=== PATIENT | male | born 1965 | race American Indian/Alaskan Native ===

== ENCOUNTER 2017-10-20 06:11 | Inpatient (IN) | payer MEDICARE, MEDICAID ==
[~2017-10-20] VITALS: Ht 170.2 cm; Wt 103.1 kg
[2017-10-20] VITALS (24 sets, daily range): BP systolic 127–171; BP diastolic 86–120
[~2017-10-20 06:11] MED LIST: GLIP5TAB13 PO; LISI1TAB13 PO; METF10002 PO; PANT20TA3 PO; cefazolin/dext.iso 2gm/50ml 50 ML IV ONE; famotidine 20mg tablet PO ONE
[2017-10-20] MEDS: ringers solution, lacted 1,000 ML IV SCH ×2 (07:37→15:47)
[2017-10-20 07:48] LABS: BASOPHILS % (AUTO) 0.5 % (0-1); EOSINOPHILS # (AUTO) 0.3 X10'3 (0-0.9); EOSINOPHILS % (AUTO) 3.7 % (0-6); LYMPHOCYTES % (AUTO) 38.3 % (21-51); MEAN CORPUSCULAR HEMOGLOBIN 30.9 PG (27.0-31.0); MEAN CORPUSCULAR HGB CONC 33.3 % (33.0-36.5); MEAN CORPUSCULAR VOLUME 92.8 FL (78-98); MEAN PLATELET VOLUME 8.8 FL (7.4-10.4); MONOCYTES # (AUTO) 0.5 X10'3 (0-0.9); MONOCYTES % (AUTO) 6.9 % (2-12); NEUTROPHILS # (AUTO) 3.9 X10'3 (1.8-7.7); NEUTROPHILS % (AUTO) 50.6 % (42-75); PRE OP HEMATOCRIT 46.3 % (42.0-52.0); PRE OP HEMOGLOBIN 15.4 g/dL (14.0-17.9); PRE OP PLATELET COUNT 241 X10'3 (140-440); RED BLOOD COUNT 4.99 X10'6 (4.70-6.10); RED CELL DISTRIBUTION WIDTH 13.9 % (11.5-14.5)
[2017-10-20 08:03] LABS: ALBUMIN 3.3 G/DL (3.4-5.0); ALBUMIN/GLOBULIN RATIO 0.9 (1.1-1.5); ALKALINE PHOSPHATASE 103 IU/L (46-116); BLOOD UREA NITROGEN 12 MG/DL (7-18); BUN/CREATININE RATIO 13.3 (5.4-32.0); CHLORIDE 110 MMOL/L (99-107); PRE OP ALT 39 U/L (30-65); PRE OP ANION GAP 9 (8-16); PRE OP AST 16 U/L (10-37); PRE OP BILIRUB, TOTAL 0.4 MG/DL (0.0-1.0); PRE OP GLUCOSE 148 MG/DL (70-104); PRE OP SODIUM 144 MMOL/L (135-145); TOTAL CARBON DIOXIDE 24.6 MMOL/L (24-32); TOTAL PROTEIN 7.1 G/DL (6.4-8.2); eGFR 89 ML/MIN
[2017-10-20] MEDS ORDERED: BUPIVAcaine/PF 2.5 mg/ml (0.25%) 30ml vial ONE ×2 (08:24→09:45)
[2017-10-20] MEDS ORDERED: ceFAZolin 1000mg inj ONE ×2 (08:24→09:45)
[2017-10-20] MEDS ORDERED: ondansetron/PF 4mg/2ml inj ONE (10:04)
[2017-10-20] MEDS ORDERED: sevoflurane 250ml liquid IH ONE (10:04)
[2017-10-20] MEDS ORDERED: dexamethasone sod phosphate 4mg/ml inj. ONE (10:04)
[2017-10-20] MEDS ORDERED: neostigmine methylsulfate 1 MG/ML 10ml vial ONE (10:04)
[2017-10-20] MEDS ORDERED: glycopyrrolate 0.2mg/ml inj ONE (10:04)
[2017-10-20] MEDS ORDERED: labetalol 5mg/ml 20ml inj. IV ONE (10:04)
[2017-10-20] MEDS ORDERED: fentaNYL/PF 50MCG/1 ML 2ML syringe ONE ×3 (10:20→11:39)
[2017-10-20] MEDS ORDERED: MIDAZolam 5mg/5ml vial ONE (10:22)
[2017-10-20] MEDS ORDERED: rocuronium 10mg/ml inj IV ONE (10:30)
[2017-10-20] MEDS ORDERED: propofol inj 20 ML IV ONE (10:30)
[2017-10-20] MEDS ORDERED: LIDOcaine 2% (20mg/ml) 5ml vial ONE (10:31)
[2017-10-20 10:37] LABS: CLARITY,URINE Clear (Clear); COLOR,URINE Yellow (Yellow); GLUCOSE, URINE Negative (Neg); KETONES,URINE Negative (Neg); LEUKOCYTE ESTERASE ,URINE Small (Neg); NITRITES, URINE Negative (Neg); OCCULT BLOOD,URINE Negative (Neg); PROTEIN,URINE Negative (Neg); UROBILINOGEN,URINE 0.2 E.U/dL (0.2-1.0)
[2017-10-20 10:38] LABS: UA COLLECTION TYPE VOIDED
[2017-10-20] MEDS ORDERED: ringers solution, lacted 1,000 ML IV SCH (10:48)
[2017-10-20] MEDS ORDERED: labetalol 20mg/4ml (5mg/ml) syringe IV PRN (10:50)
[2017-10-20] MEDS ORDERED: ondansetron/PF 4mg/2ml inj IV PRN ×2 (10:50→13:35)
[2017-10-20] MEDS ORDERED: fentaNYL/PF 50MCG/1 ML 2ML syringe IV PRN ×2 (10:50)
[2017-10-20] MEDS ORDERED: meperidine/PF 25mg/ml syringe IV PRN (10:50)
[2017-10-20] MEDS ORDERED: hydrALAZINE 20mg/ml inj. IV PRN (10:50)
[2017-10-20 10:51] LABS: MUCUS STRANDS MANY /LPF (Neg); SQUAMOUS EPITHELIAL CELL,UR MANY /LPF (FEW)
[2017-10-20 10:54] LABS: BACTERIA,URINE NONE SEEN /HPF (Neg); RBC,URINE 0-2 /HPF (0-2)
[2017-10-20] MEDS: meperidine/PF 25mg/ml syringe IV PRN ×4 (12:19→15:48)
[2017-10-20] MEDS ORDERED: dextrose ORAL solution 15 GM/59 ML bottle PO PRN ×2 (13:35)
[2017-10-20] MEDS ORDERED: acetaminophen 325mg tablet PO PRN ×2 (13:35)
[2017-10-20] MEDS ORDERED: magnesium Cl slow-release 64mg tablet PO PRN (13:35)
[2017-10-20] MEDS ORDERED: metoclopramide 5 mg/ml inj IV PRN (13:35)
[2017-10-20] MEDS ORDERED: magnesium 2GM in 50ml NS 50 ML IV PRN (13:35)
[2017-10-20] MEDS ORDERED: glucagon, human recombinant 1mg kit SUBCUT PRN (13:35)
[2017-10-20] MEDS ORDERED: morphine sulfate 8 MG/ML SYRINGE IV PRN ×2 (13:35)
[2017-10-20] MEDS ORDERED: magnesium 4gm in 100ml NS 100 ML IV PRN (13:35)
[2017-10-20] MEDS ORDERED: potassium Cl 40MEQ/NS 500ml 500 ML IV PRN ×2 (13:35)
[2017-10-20] MEDS ORDERED: mag hydrox/Alum hydrox/simeth 30ml oral suspension PO PRN (13:35)
[2017-10-20] MEDS ORDERED: haloperidol lactate 5mg/ml inj IM PRN (13:35)
[2017-10-20] MEDS: K and/or MAG REPLACEMENT MC SCH (13:35)
[2017-10-20] MEDS ORDERED: dextrose 50%-water 50ml dispensing syringe IV PRN ×3 (13:35)
[2017-10-20] MEDS ORDERED: potassium Cl 20 mEq SR tablet PO PRN ×2 (13:35)
[2017-10-20] MEDS ORDERED: HYDROcodone/acetaminophen 5mg/325mg tablet PO PRN (13:35)
[2017-10-20] MEDS ORDERED: haloperidol 5mg tablet PO PRN (13:35)
[2017-10-20] MEDS ORDERED: magnesium hydroxide 30ml (MOM) UD suspension PO PRN (13:35)
[2017-10-20] MEDS ORDERED: thiamine 100mg/ml 2ml inj. IV ONE (13:35)
[2017-10-20] MEDS ORDERED: MESSAGE TO PHARMACY PO ONE (13:35)
[2017-10-20] MEDS: normal saline 1000ml 1,000 ML IV SCH ×2 (13:35→20:23)
[2017-10-20] MEDS ORDERED: HYDROcodone/acetaminophen 10/325mg tab PO PRN (13:35)
[2017-10-20] MEDS: HYDROmorphone 2mg tablet PO PRN ×2 (15:46→20:23)
[2017-10-20 15:47] LABS: HEMOGLOBIN A1C 7.3 % (4.5-6.2)
[2017-10-20] MEDS: LORazepam 2 mg/ml vial IV PRN ×2 (16:14→20:23)
[2017-10-20] MEDS: enoxaparin 40mg/0.4ml syringe SUBCUT SCH (18:08)
[2017-10-20] MEDS: Insulin Detemir pen SQ SCH (21:00)
[2017-10-20] MEDS ORDERED: temazepam 15mg capsule PO PRN (21:00)
[2017-10-21] VITALS: BP 125/72
[2017-10-21] MEDS: LORazepam 2 mg/ml vial IV PRN ×6 (01:51→21:55)
[2017-10-21] MEDS: HYDROmorphone 2mg tablet PO PRN ×5 (01:51→19:21)
[2017-10-21 04:00] VITALS: BP 125/84
[2017-10-21 06:23] LABS: BASOPHILS % (AUTO) 0.1 % (0-1); EOSINOPHILS # (AUTO) 0.1 X10'3 (0-0.9); EOSINOPHILS % (AUTO) 0.8 % (0-6); HEMATOCRIT 43.3 % (42.0-52.0); HEMOGLOBIN 14.5 g/dl (14.0-17.9); LYMPHOCYTES # (AUTO) 2.3 X10'3 (1.1-4.8); LYMPHOCYTES % (AUTO) 17.4 % (21-51); MEAN CORPUSCULAR HEMOGLOBIN 31.4 PG (27.0-31.0); MEAN CORPUSCULAR HGB CONC 33.4 % (33.0-36.5); MEAN CORPUSCULAR VOLUME 93.8 FL (78-98); MEAN PLATELET VOLUME 9.1 FL (7.4-10.4); MONOCYTES # (AUTO) 0.8 X10'3 (0-0.9); MONOCYTES % (AUTO) 5.9 % (2-12); NEUTROPHILS % (AUTO) 75.8 % (42-75); PLATELET COUNT 231 X10'3 (140-440); RED BLOOD COUNT 4.61 X10'6 (4.70-6.10); RED CELL DISTRIBUTION WIDTH 14.2 % (11.5-14.5); WHITE BLOOD COUNT 13.2 X10'3 (4.5-11.0)
[2017-10-21 06:43] LABS: ALBUMIN 3.1 G/DL (3.4-5.0); ANION GAP 9 (8-16); BLOOD UREA NITROGEN 10 MG/DL (7-18); BUN/CREATININE RATIO 9.3 (5.4-32.0); CALCIUM 8.7 MG/DL (8.5-10.1); CHLORIDE 104 MMOL/L (99-107); CREATININE 1.07 MG/DL (0.60-1.10); GLUCOSE 170 MG/DL (70-104); MAGNESIUM 1.6 MG/DL (1.5-2.4); POTASSIUM 4.3 MMOL/L (3.5-5.1); SODIUM 140 MMOL/L (135-145); TOTAL CARBON DIOXIDE 26.7 MMOL/L (24-32); eGFR 73 ML/MIN
[2017-10-21 07:40] VITALS: BP 140/90
[2017-10-21] MEDS: K and/or MAG REPLACEMENT MC SCH (07:59)
[2017-10-21] MEDS ORDERED: non-formulary drug (Lisinopril/Hydrochlorothiazide (Lisinopril-Hctz 20-25 mg Tab) 1 TAB) PO SCH (08:00)
[2017-10-21] MEDS: lisinopril 20mg tablet PO SCH (08:04)
[2017-10-21] MEDS: HYDROchlorothiazide 25mg tablet PO SCH (08:04)
[2017-10-21] MEDS: pantoprazole 40mg Tablet.DR PO SCH (08:05)
[2017-10-21] MEDS: enoxaparin 40mg/0.4ml syringe SUBCUT SCH (08:06)
[2017-10-21] MEDS: normal saline 1000ml 1,000 ML IV SCH ×2 (09:35→16:41)
[2017-10-21 11:34] VITALS: BP 131/94
[2017-10-21] MEDS ORDERED: morphine sulfate 8 MG/ML SYRINGE IV PRN (13:35)
[2017-10-21] MEDS: insulin Lispro (HumaLOG) vial - multi-dose SQ SCH (18:59)
[2017-10-21 19:25] VITALS: BP 132/87
[2017-10-21] MEDS: docusate sod 250mg capsule PO SCH (21:39)
[2017-10-21] MEDS: Insulin Detemir pen SQ SCH (21:42)
[2017-10-22] VITALS: BP 116/67
[2017-10-22] MEDS: normal saline 1000ml 1,000 ML IV SCH ×2 (02:20→15:40)
[2017-10-22] MEDS: HYDROmorphone 2mg tablet PO PRN ×4 (03:40→23:35)
[2017-10-22 05:22] LABS: BASOPHILS # (AUTO) 0.1 X10'3 (0-0.2); BASOPHILS % (AUTO) 0.6 % (0-1); EOSINOPHILS # (AUTO) 0.2 X10'3 (0-0.9); EOSINOPHILS % (AUTO) 2.3 % (0-6); HEMATOCRIT 40.4 % (42.0-52.0); HEMOGLOBIN 13.6 g/dl (14.0-17.9); LYMPHOCYTES % (AUTO) 29.3 % (21-51); MEAN CORPUSCULAR HGB CONC 33.7 % (33.0-36.5); MEAN CORPUSCULAR VOLUME 91.7 FL (78-98); MONOCYTES # (AUTO) 0.8 X10'3 (0-0.9); MONOCYTES % (AUTO) 7.9 % (2-12); NEUTROPHILS % (AUTO) 59.9 % (42-75); PLATELET COUNT 207 X10'3 (140-440); RED CELL DISTRIBUTION WIDTH 13.9 % (11.5-14.5); WHITE BLOOD COUNT 10.1 X10'3 (4.5-11.0)
[2017-10-22 06:13] LABS: ALBUMIN 2.8 G/DL (3.4-5.0); ANION GAP 5 (8-16); BLOOD UREA NITROGEN 10 MG/DL (7-18); BUN/CREATININE RATIO 11.2 (5.4-32.0); CALCIUM 8.2 MG/DL (8.5-10.1); CHLORIDE 107 MMOL/L (99-107); CREATININE 0.89 MG/DL (0.60-1.10); GLUCOSE 121 MG/DL (70-104); MAGNESIUM 1.6 MG/DL (1.5-2.4); POTASSIUM 3.8 MMOL/L (3.5-5.1); SODIUM 142 MMOL/L (135-145); TOTAL CARBON DIOXIDE 30.1 MMOL/L (24-32); eGFR 90 ML/MIN
[2017-10-22] MEDS: pantoprazole 40mg Tablet.DR PO SCH (07:19)
[2017-10-22] MEDS: lisinopril 20mg tablet PO SCH (07:19)
[2017-10-22] MEDS: HYDROchlorothiazide 25mg tablet PO SCH (07:20)
[2017-10-22] MEDS: enoxaparin 40mg/0.4ml syringe SUBCUT SCH (07:20)
[2017-10-22 07:30] VITALS: BP 137/87
[2017-10-22] MEDS: K and/or MAG REPLACEMENT MC SCH (08:00)
[2017-10-22] MEDS ORDERED: LORazepam 2 mg/ml vial IV PRN (13:35)
[2017-10-22] MEDS: LORazepam 1 MG tablet PO PRN ×2 (15:19→21:56)
[2017-10-22] MEDS ORDERED: HYDROmorphone 2mg tablet PO PRN (16:40)
[2017-10-22] MEDS ORDERED: morphine sulfate 8 MG/ML SYRINGE IV PRN (16:40)
[2017-10-22] MEDS: nicotine 21mg patch - 24 hr TD SCH (19:16)
[2017-10-22 20:00] VITALS: BP 139/108
[2017-10-22 21:00] VITALS: BP 140/110
[2017-10-22 21:20] VITALS: BP_SYST 133; BP_SYST 137; BP_DIAS 85; BP_DIAS 87
[2017-10-22] MEDS: docusate sod 250mg capsule PO SCH (21:56)
[2017-10-22] MEDS: Insulin Detemir pen SQ SCH (22:01)
[2017-10-23] VITALS: BP 141/87
[2017-10-23] MEDS ORDERED: normal saline 1000ml 1,000 ML IV SCH (02:38)
[2017-10-23] MEDS: LORazepam 1 MG tablet PO PRN ×4 (02:40→17:11)
[2017-10-23] MEDS: HYDROmorphone 2mg tablet PO PRN ×4 (05:23→22:53)
[2017-10-23 06:07] LABS: ANION GAP 7 (8-16); BLOOD UREA NITROGEN 8 MG/DL (7-18); BUN/CREATININE RATIO 8.6 (5.4-32.0); CALCIUM 8.7 MG/DL (8.5-10.1); CHLORIDE 102 MMOL/L (99-107); CREATININE 0.93 MG/DL (0.60-1.10); GLUCOSE 144 MG/DL (70-104); MAGNESIUM 1.7 MG/DL (1.5-2.4); POTASSIUM 3.8 MMOL/L (3.5-5.1); SODIUM 141 MMOL/L (135-145); TOTAL CARBON DIOXIDE 32.1 MMOL/L (24-32); eGFR 86 ML/MIN
[2017-10-23 07:28] VITALS: BP 128/80
[2017-10-23] MEDS: K and/or MAG REPLACEMENT MC SCH (08:00)
[2017-10-23] MEDS: HYDROchlorothiazide 25mg tablet PO SCH (08:09)
[2017-10-23] MEDS: lisinopril 20mg tablet PO SCH (08:09)
[2017-10-23] MEDS: pantoprazole 40mg Tablet.DR PO SCH (08:09)
[2017-10-23] MEDS: enoxaparin 40mg/0.4ml syringe SUBCUT SCH (08:11)
[2017-10-23] MEDS: nicotine 21mg patch - 24 hr TD SCH (08:13)
[2017-10-23] MEDS: insulin Lispro (HumaLOG) vial - multi-dose SQ SCH ×2 (09:36→14:48)
[2017-10-23 11:30] VITALS: BP 140/97
[2017-10-23] MEDS ORDERED: methylnaltrexone br 12mg/0.6ml inj***SubQ only SQ ONE (12:15)
[2017-10-23] MEDS ORDERED: magnesium hydroxide 30ml (MOM) UD suspension PO ONE (12:15)
[2017-10-23] MEDS ORDERED: Potassium Cl inj 10 MEQ in normal saline 1000ml 1,000 ML IV SCH (13:35)
[2017-10-23] MEDS: folic acid 1mg tablet PO SCH (15:16)
[2017-10-23 20:00] VITALS: BP 148/93
[2017-10-23] MEDS: magnesium hydroxide 30ml (MOM) UD suspension PO SCH (20:00)
[2017-10-23] MEDS: thiamine 100mg tablet PO SCH (20:16)
[2017-10-23] MEDS: docusate sod 250mg capsule PO SCH (21:00)
[2017-10-23] MEDS: Insulin Detemir pen SQ SCH (22:45)
[2017-10-24] VITALS: BP 140/93
[2017-10-24 06:07] LABS: ALBUMIN 3.3 G/DL (3.4-5.0); ANION GAP 6 (8-16); BLOOD UREA NITROGEN 14 MG/DL (7-18); BUN/CREATININE RATIO 13.3 (5.4-32.0); CALCIUM 9.4 MG/DL (8.5-10.1); CHLORIDE 100 MMOL/L (99-107); CREATININE 1.05 MG/DL (0.60-1.10); GLUCOSE 132 MG/DL (70-104); POTASSIUM 4.1 MMOL/L (3.5-5.1); SODIUM 139 MMOL/L (135-145); TOTAL CARBON DIOXIDE 33.2 MMOL/L (24-32); eGFR 75 ML/MIN
[2017-10-24 07:20] VITALS: BP 116/70
[2017-10-24] MEDS: K and/or MAG REPLACEMENT MC SCH (08:00)
[2017-10-24] MEDS: pantoprazole 40mg Tablet.DR PO SCH (08:37)
[2017-10-24] MEDS: folic acid 1mg tablet PO SCH (08:37)
[2017-10-24] MEDS: thiamine 100mg tablet PO SCH (08:38)
[2017-10-24] MEDS: lisinopril 20mg tablet PO SCH (08:38)
[2017-10-24] MEDS: HYDROchlorothiazide 25mg tablet PO SCH (08:38)
[2017-10-24] MEDS: magnesium hydroxide 30ml (MOM) UD suspension PO SCH (08:38)
[2017-10-24] MEDS: enoxaparin 40mg/0.4ml syringe SUBCUT SCH (08:39)
[2017-10-24] MEDS: nicotine 21mg patch - 24 hr TD SCH (08:40)
[2017-10-24 10:53] VITALS: BP 101/59
[2017-10-24] MEDS ORDERED: PER10325T PO (11:13)
[2017-10-24] MEDS ORDERED: THI100T PO (11:13)
[2017-10-24] MEDS ORDERED: FOLI1TAB16 PO (11:13)
[2017-10-24] MEDS ORDERED: LORazepam 2 mg/ml vial IV PRN (13:35)
[2017-10-24] MEDS ORDERED: LORazepam 1 MG tablet PO PRN (13:35)
== END 2017-10-24 12:04 | disposition home or self-care (01) | DRG 354 ==
LOC: PAS 06:11 → SUR 3N 13:35
PROVIDERS: ADMIT Family Medicine; ATTEND Internal Medicine
PROC: 0WUF4JZ Supplement Abdominal Wall with Synthetic Substitute, Percutaneous Endoscopic Approach (ICD-10-PCS; principal; 2017-10-20 10:04)
DX: K43.9 Ventral hernia without obstruction or gangrene (principal); K56.7 Ileus, unspecified; F10.20 Alcohol dependence, uncomplicated; E03.9 Hypothyroidism, unspecified; E11.9 Type 2 diabetes mellitus without complications; I10 Essential (primary) hypertension; K66.0 Peritoneal adhesions (postprocedural) (postinfection); F17.210 Nicotine dependence, cigarettes, uncomplicated; Z79.899 Other long term (current) drug therapy; Z86.711 Personal history of pulmonary embolism; Z86.718 Personal history of other venous thrombosis and embolism; Z87.11 Personal history of peptic ulcer disease; Z83.3 Family history of diabetes mellitus
CPT/HCPCS: 36415; 80048; 80053; 81001; 82948; 83036; 83735; 85025; 93005; A4344; A6258; A7000; C1758; C1781; J0360; J0690; J1100; J1650; J2001; J2060; J2175; J2212; J2250; J2405; J2704; J2710; J3010; J3411; J3480; J3490; J7030; J7120

== ENCOUNTER 2017-11-01 13:08 | Outpatient (CLI) | payer MEDICARE, MEDICAID ==
[~2017-11-01 13:08] MED LIST changes: +FOLI1TAB16 PO; +PER10325T PO; +THI100T PO; -cefazolin/dext.iso 2gm/50ml 50 ML IV ONE; -famotidine 20mg tablet PO ONE
== END 2017-11-01 23:59 | disposition home or self-care (01) ==
LOC: RAD 13:08
PROVIDERS: ATTEND Surgery
DX: I12.9 Hypertensive chronic kidney disease with stage 1 through stage 4 chronic kidney disease, or unspecified chronic kidney disease (principal); E11.22 Type 2 diabetes mellitus with diabetic chronic kidney disease; N18.9 Chronic kidney disease, unspecified; F17.200 Nicotine dependence, unspecified, uncomplicated; Z98.890 Other specified postprocedural states
CPT/HCPCS: 76700

== ENCOUNTER 2018-07-08 05:09 | Emergency (ER) | payer MEDICARE, MEDICAID ==
[~2018-07-08] VITALS: Ht 167.6 cm; Wt 88.4 kg
[~2018-07-08 05:09] MED LIST changes: +METF-438 PO; -METF10002 PO; -PER10325T PO
[2018-07-08 07:35] LABS: BASOPHILS # (AUTO) 0.1 X10'3 (0-0.2); BASOPHILS % (AUTO) 0.8 % (0-1); EOSINOPHILS # (AUTO) 0.4 X10'3 (0-0.9); EOSINOPHILS % (AUTO) 4.4 % (0-6); HEMATOCRIT 45.7 % (42.0-52.0); HEMOGLOBIN 15.7 g/dl (14.0-17.9); LYMPHOCYTES # (AUTO) 2.9 X10'3 (1.1-4.8); LYMPHOCYTES % (AUTO) 35.8 % (21-51); MEAN CORPUSCULAR HEMOGLOBIN 32.3 PG (27.0-31.0); MEAN CORPUSCULAR HGB CONC 34.4 % (33.0-36.5); MEAN CORPUSCULAR VOLUME 93.8 FL (78-98); MEAN PLATELET VOLUME 8.6 FL (7.4-10.4); MONOCYTES # (AUTO) 0.5 X10'3 (0-0.9); MONOCYTES % (AUTO) 5.7 % (2-12); NEUTROPHILS # (AUTO) 4.3 X10'3 (1.8-7.7); NEUTROPHILS % (AUTO) 53.3 % (42-75); PLATELET COUNT 177 X10'3 (140-440); RED BLOOD COUNT 4.87 X10'6 (4.70-6.10); RED CELL DISTRIBUTION WIDTH 13.6 % (11.5-14.5); WHITE BLOOD COUNT 8.1 X10'3 (4.5-11.0)
[2018-07-08 07:54] LABS: ALANINE AMINOTRANSFERASE 140 U/L (12-78); ALBUMIN 3.1 G/DL (3.4-5.0); ALBUMIN/GLOBULIN RATIO 0.9 (1.1-1.5); ALKALINE PHOSPHATASE 132 IU/L (46-116); ANION GAP 8 (8-16); ASPARTATE AMINO TRANSFERASE 56 U/L (10-37); BILIRUBIN,TOTAL 0.4 MG/DL (0.1-1.0); BLOOD UREA NITROGEN 10 MG/DL (7-18); BUN/CREATININE RATIO 12.7 (5.4-32.0); CALCIUM 8.7 MG/DL (8.5-10.1); CHLORIDE 103 MMOL/L (99-107); CREATININE 0.79 MG/DL (0.60-1.10); GLUCOSE 221 MG/DL (70-104); POTASSIUM 4.2 MMOL/L (3.5-5.1); SODIUM 136 MMOL/L (135-145); TOTAL CARBON DIOXIDE 25.4 MMOL/L (24-32); TOTAL PROTEIN 6.4 G/DL (6.4-8.2); eGFR > 90 ML/MIN
[2018-07-08 07:59] LABS: D-DIMER < 0.19 MG/L FEU (0-0.50); INR 0.9 INR; PROTHROMBIN TIME 9.7 SECONDS (9.0-12.0)
[2018-07-08] MEDS ORDERED: ibuprofen tablet 400 MG TABLET PO ONE (09:10)
[2018-07-08 09:28] VITALS: BP 150/114
== END 2018-07-08 09:30 | disposition home or self-care (01) ==
LOC: ER 05:10
DX: M79.605 Pain in left leg (principal); I10 Essential (primary) hypertension; E11.9 Type 2 diabetes mellitus without complications; F12.90 Cannabis use, unspecified, uncomplicated; F17.210 Nicotine dependence, cigarettes, uncomplicated; Z56.0 Unemployment, unspecified; Z86.718 Personal history of other venous thrombosis and embolism; Z86.711 Personal history of pulmonary embolism; Z98.890 Other specified postprocedural states; Z79.899 Other long term (current) drug therapy
CPT/HCPCS: 36415; 71045; 80053; 83880; 84484; 85025; 85379; 85610; 93005; 99285

== ENCOUNTER 2018-07-23 05:59 | Inpatient (IN) | payer MEDICARE, MEDICAID ==
[~2018-07-23] VITALS: Ht 170.2 cm; Wt 99.7 kg
[2018-07-23] MEDS ORDERED: normal saline 1000ML IV soln IVB ONE (06:35)
[2018-07-23] MEDS ORDERED: thiamine 100mg/ml 2ml inj. IM ONE (06:35)
[2018-07-23] MEDS ORDERED: folic acid 1mg/0.2ml inj IV ONE (06:35)
[2018-07-23 06:55] LABS: BASOPHILS % (AUTO) 0.2 % (0-1); EOSINOPHILS # (AUTO) 0.2 X10'3 (0-0.9); EOSINOPHILS % (AUTO) 2.4 % (0-6); HEMATOCRIT 45.1 % (42.0-52.0); HEMOGLOBIN 15.6 g/dl (14.0-17.9); LYMPHOCYTES # (AUTO) 1.8 X10'3 (1.1-4.8); LYMPHOCYTES % (AUTO) 18.1 % (21-51); MEAN CORPUSCULAR HEMOGLOBIN 32.4 PG (27.0-31.0); MEAN CORPUSCULAR HGB CONC 34.6 % (33.0-36.5); MEAN CORPUSCULAR VOLUME 93.4 FL (78-98); MEAN PLATELET VOLUME 8.4 FL (7.4-10.4); MONOCYTES # (AUTO) 0.5 X10'3 (0-0.9); MONOCYTES % (AUTO) 4.6 % (2-12); NEUTROPHILS # (AUTO) 7.5 X10'3 (1.8-7.7); NEUTROPHILS % (AUTO) 74.7 % (42-75); PLATELET COUNT 231 X10'3 (140-440); RED BLOOD COUNT 4.83 X10'6 (4.70-6.10); RED CELL DISTRIBUTION WIDTH 13.8 % (11.5-14.5)
[2018-07-23] MEDS ORDERED: thiamine 100mg/ml 2ml inj. IV ONE ×2 (06:55→08:20)
[2018-07-23] MEDS ORDERED: LORazepam 2 mg/ml vial IV ONE (07:10)
[2018-07-23 07:11] LABS: ALANINE AMINOTRANSFERASE 56 U/L (12-78); ALBUMIN 3.1 G/DL (3.4-5.0); ALBUMIN/GLOBULIN RATIO 0.8 (1.1-1.5); ALKALINE PHOSPHATASE 92 IU/L (46-116); ANION GAP 10 (8-16); ASPARTATE AMINO TRANSFERASE 23 U/L (10-37); BILIRUBIN,TOTAL 0.9 MG/DL (0.1-1.0); BLOOD UREA NITROGEN 10 MG/DL (7-18); BUN/CREATININE RATIO 12.7 (5.4-32.0); CALCIUM 8.5 MG/DL (8.5-10.1); CHLORIDE 105 MMOL/L (99-107); CREATININE 0.79 MG/DL (0.60-1.10); GLUCOSE 189 MG/DL (70-104); MAGNESIUM 2.1 MG/DL (1.5-2.4); PHOSPHORUS 3.1 MG/DL (2.3-4.5); POTASSIUM 3.6 MMOL/L (3.5-5.1); SODIUM 140 MMOL/L (135-145); TOTAL CARBON DIOXIDE 25.1 MMOL/L (24-32); TOTAL PROTEIN 6.8 G/DL (6.4-8.2); eGFR > 90 ML/MIN
[2018-07-23 07:29] LABS: ETHANOL < 0.010 GM/DL (0.0-0.010)
[2018-07-23] MEDS: multivitamins, therapeutics tablet PO SCH (08:11)
[2018-07-23] MEDS: normal saline 1000ml 1,000 ML IV SCH ×2 (08:18→18:18)
[2018-07-23] MEDS ORDERED: acetaminophen 325mg tablet PO PRN (08:20)
[2018-07-23] MEDS ORDERED: magnesium hydroxide 30ml (MOM) UD suspension PO PRN (08:20)
[2018-07-23] MEDS ORDERED: mag hydrox/Alum hydrox/simeth 30ml oral suspension PO PRN (08:20)
[2018-07-23] MEDS ORDERED: dextrose 50%-water 50ml dispensing syringe IV PRN (08:20)
[2018-07-23] MEDS ORDERED: ondansetron/PF 4mg/2ml inj IV PRN (08:20)
[2018-07-23 08:46] LABS: URINE AMPHETAMINE SCREEN POSITIVE (Neg); URINE BARBITUATE SCREEN NEGATIVE (Neg); URINE BENZODIAZEPINES SCREEN NEGATIVE (Neg); URINE CANNABINOID SCREEN POSITIVE (Neg); URINE COCAINE SCREEN NEGATIVE (Neg); URINE METHADONE SCREEN NEGATIVE (Neg); URINE OPIATE SCREEN NEGATIVE (Neg); URINE PHENCYCLIDINE SCREEN NEGATIVE (Neg)
[2018-07-23] MEDS: LORazepam 2 mg/ml vial IV PRN ×6 (09:05→20:53)
[2018-07-23 09:15] VITALS: BP 141/99
[2018-07-23 11:00] VITALS: BP 148/98
[2018-07-23] MEDS ORDERED: thiamine inj. 100 MG in normal saline 100ml IV soln 99 ML IV ONE (12:10)
[2018-07-23] MEDS ORDERED: INSU100V9 SUBCUT (15:43)
[2018-07-23 19:00] VITALS: BP 143/65
[2018-07-23] MEDS: heparin, porcine 5000 units/ml vial SQ SCH (19:08)
[2018-07-23 23:00] VITALS: BP 125/78
[2018-07-24] MEDS: LORazepam 2 mg/ml vial IV PRN ×5 (00:44→19:34)
[2018-07-24 03:00] VITALS: BP 113/79
[2018-07-24] MEDS: normal saline 1000ml 1,000 ML IV SCH ×2 (04:18→16:36)
[2018-07-24 05:26] LABS: BASOPHILS % (AUTO) 0.5 % (0-1); EOSINOPHILS # (AUTO) 0.5 X10'3 (0-0.9); EOSINOPHILS % (AUTO) 5.3 % (0-6); HEMATOCRIT 42.5 % (42.0-52.0); HEMOGLOBIN 14.6 g/dl (14.0-17.9); LYMPHOCYTES # (AUTO) 2.9 X10'3 (1.1-4.8); LYMPHOCYTES % (AUTO) 32.7 % (21-51); MEAN CORPUSCULAR HEMOGLOBIN 32.6 PG (27.0-31.0); MEAN CORPUSCULAR HGB CONC 34.2 % (33.0-36.5); MEAN CORPUSCULAR VOLUME 95.2 FL (78-98); MONOCYTES # (AUTO) 0.6 X10'3 (0-0.9); MONOCYTES % (AUTO) 6.6 % (2-12); NEUTROPHILS # (AUTO) 4.8 X10'3 (1.8-7.7); NEUTROPHILS % (AUTO) 54.9 % (42-75); PLATELET COUNT 219 X10'3 (140-440); RED BLOOD COUNT 4.46 X10'6 (4.70-6.10); RED CELL DISTRIBUTION WIDTH 13.5 % (11.5-14.5); WHITE BLOOD COUNT 8.8 X10'3 (4.5-11.0)
[2018-07-24 05:36] LABS: ALBUMIN 2.5 G/DL (3.4-5.0); ANION GAP 8 (8-16); BLOOD UREA NITROGEN 9 MG/DL (7-18); BUN/CREATININE RATIO 10.7 (5.4-32.0); CALCIUM 7.9 MG/DL (8.5-10.1); CHLORIDE 109 MMOL/L (99-107); CREATININE 0.84 MG/DL (0.60-1.10); GLUCOSE 187 MG/DL (70-104); POTASSIUM 3.8 MMOL/L (3.5-5.1); SODIUM 142 MMOL/L (135-145); TOTAL CARBON DIOXIDE 25.4 MMOL/L (24-32); eGFR > 90 ML/MIN
[2018-07-24 06:00] VITALS: BP 135/96
[2018-07-24] MEDS ORDERED: folic acid inj. 2 MG, thiamine inj. 100 MG, MVI, adult No.4 with vit. K 10 ML in dextro... IV SCH ×4 (08:00)
[2018-07-24] MEDS ORDERED: non-formulary drug (Lisinopril/Hydrochlorothiazide (Lisinopril-Hctz 20-25 mg Tab) 1 TAB) PO SCH (08:00)
[2018-07-24] MEDS: HYDROchlorothiazide 25mg tablet PO SCH (08:18)
[2018-07-24] MEDS: lisinopril 20mg tablet PO SCH (08:18)
[2018-07-24] MEDS: heparin, porcine 5000 units/ml vial SQ SCH ×2 (08:18→19:41)
[2018-07-24] MEDS: multivitamins, therapeutics tablet PO SCH (08:19)
[2018-07-24 11:00] VITALS: BP 139/89
[2018-07-24 17:06] VITALS: BP 135/86
[2018-07-24] MEDS ORDERED: MESSAGE TO PHARMACY PO ONE (17:35)
[2018-07-24] MEDS ORDERED: dextrose 50%-water 50ml dispensing syringe IV PRN ×2 (17:35)
[2018-07-24] MEDS ORDERED: glucagon, human recombinant 1mg kit SUBCUT PRN (17:35)
[2018-07-24] MEDS ORDERED: dextrose ORAL solution 15 GM/59 ML bottle PO PRN ×2 (17:35)
[2018-07-24 17:59] LABS: HEMOGLOBIN A1C 7.9 % (4.5-6.2)
[2018-07-24 19:00] VITALS: BP 129/84
[2018-07-24] MEDS ORDERED: insulin glargine (Lantus) pen - multi-dose SQ SCH (21:00)
[2018-07-24] MEDS: insulin Lispro (HumaLOG) vial - multi-dose SQ SCH (21:36)
[2018-07-24 23:00] VITALS: BP 140/86
[2018-07-25] MEDS: normal saline 1000ml 1,000 ML IV SCH (00:18)
[2018-07-25] MEDS: LORazepam 2 mg/ml vial IV PRN ×2 (00:21→04:32)
[2018-07-25 03:00] VITALS: BP 132/86
[2018-07-25 05:47] LABS: BASOPHILS % (AUTO) 0.5 % (0-1); EOSINOPHILS # (AUTO) 0.3 X10'3 (0-0.9); EOSINOPHILS % (AUTO) 4.2 % (0-6); HEMATOCRIT 44.7 % (42.0-52.0); HEMOGLOBIN 15.3 g/dl (14.0-17.9); LYMPHOCYTES # (AUTO) 2.5 X10'3 (1.1-4.8); LYMPHOCYTES % (AUTO) 34.2 % (21-51); MEAN CORPUSCULAR HEMOGLOBIN 32.3 PG (27.0-31.0); MEAN CORPUSCULAR HGB CONC 34.1 % (33.0-36.5); MEAN CORPUSCULAR VOLUME 94.6 FL (78-98); MEAN PLATELET VOLUME 9.4 FL (7.4-10.4); MONOCYTES # (AUTO) 0.4 X10'3 (0-0.9); MONOCYTES % (AUTO) 5.5 % (2-12); NEUTROPHILS # (AUTO) 4.1 X10'3 (1.8-7.7); NEUTROPHILS % (AUTO) 55.6 % (42-75); PLATELET COUNT 224 X10'3 (140-440); RED BLOOD COUNT 4.73 X10'6 (4.70-6.10); RED CELL DISTRIBUTION WIDTH 13.6 % (11.5-14.5); WHITE BLOOD COUNT 7.4 X10'3 (4.5-11.0)
[2018-07-25 06:00] VITALS: BP 99/64
[2018-07-25 06:36] LABS: ALBUMIN 2.8 G/DL (3.4-5.0); ANION GAP 13 (8-16); BLOOD UREA NITROGEN 10 MG/DL (7-18); BUN/CREATININE RATIO 12.5 (5.4-32.0); CALCIUM 8.4 MG/DL (8.5-10.1); CHLORIDE 105 MMOL/L (99-107); GLUCOSE 253 MG/DL (70-104); SODIUM 140 MMOL/L (135-145); eGFR > 90 ML/MIN
[2018-07-25 06:37] LABS: POTASSIUM 4.2 MMOL/L (3.5-5.1)
[2018-07-25 07:00] VITALS: BP 99/64
[2018-07-25] MEDS ORDERED: folic acid 1mg tablet PO SCH (08:00)
[2018-07-25] MEDS ORDERED: thiamine 100mg tablet PO SCH (08:00)
[2018-07-25] MEDS ORDERED: LORazepam 1 MG tablet PO PRN (08:20)
[2018-07-25] MEDS ORDERED: LORazepam 2 mg/ml vial IV PRN (08:20)
[2018-07-25] MEDS: multivitamins, therapeutics tablet PO SCH (08:23)
[2018-07-25] MEDS: lisinopril 20mg tablet PO SCH (08:23)
[2018-07-25] MEDS: HYDROchlorothiazide 25mg tablet PO SCH (08:25)
[2018-07-25] MEDS: heparin, porcine 5000 units/ml vial SQ SCH (08:26)
[2018-07-25] MEDS: insulin Lispro (HumaLOG) vial - multi-dose SQ SCH (08:46)
[2018-07-25 11:00] VITALS: BP 153/100
[2018-07-25] MEDS ORDERED: CHLO25CA10 PO (11:20)
[2018-07-25] MEDS ORDERED: MULT1TAB74 PO (11:20)
[2018-07-27] MEDS ORDERED: LORazepam 1 MG tablet PO PRN (08:20)
[2018-07-27] MEDS ORDERED: LORazepam 2 mg/ml vial IV PRN (08:20)
== END 2018-07-25 12:50 | disposition home or self-care (01) | DRG 897 ==
LOC: ER 05:59 → ED HOLD 08:18 → PCU 3S 09:10
PROVIDERS: ADMIT Family Medicine; ATTEND Family Medicine
DX: F10.239 Alcohol dependence with withdrawal, unspecified (principal); E11.65 Type 2 diabetes mellitus with hyperglycemia; F15.10 Other stimulant abuse, uncomplicated; F17.210 Nicotine dependence, cigarettes, uncomplicated; G40.909 Epilepsy, unspecified, not intractable, without status epilepticus; E11.40 Type 2 diabetes mellitus with diabetic neuropathy, unspecified; I10 Essential (primary) hypertension; F12.90 Cannabis use, unspecified, uncomplicated; Y90.0 Blood alcohol level of less than 20 mg/100 ml; Z91.19 Patient's noncompliance with other medical treatment and regimen; Z86.711 Personal history of pulmonary embolism; Z86.718 Personal history of other venous thrombosis and embolism; Z80.8 Family history of malignant neoplasm of other organs or systems; Z83.3 Family history of diabetes mellitus; Z83.42 Family history of familial hypercholesterolemia; Z71.51 Drug abuse counseling and surveillance of drug abuser; Z71.6 Tobacco abuse counseling
CPT/HCPCS: 36415; 80048; 80053; 80305; 80320; 82948; 83036; 83735; 84100; 84484; 85025; 87070; 93005; 96361; 96374; 96375; 99285; J1644; J1815; J2060; J3411; J3490; J7030; J7060